=== PATIENT | male | born 1960 | race Two or more races ===

== ENCOUNTER 2017-01-26 19:32 | Emergency (ER) | payer OTHER, MEDICAID ==
--- NOTE | 2017-01-26 19:43 | CPEKG ---
Heart Rate: 99 RR Interval: 606 QRSD Interval: 136 QT Interval: 376 QTC Interval: 483 QRS [place]: -20 T Wave [place]: 32 EKG Severity - ABNORMAL ECG - EKG Impression: ATRIAL FLUTTER, A-RATE 234 EKG Impression: MULTIFORM VENTRICULAR PREMATURE COMPLEXES EKG Impression: RIGHT BUNDLE BRANCH BLOCK EKG Impression: PROBABLE INFERIOR INFARCT, OLD Electronically Signed By: Fredy Deras 27-Jan-2017 00:12:27
[2017-01-26 20:13] LABS: % IMMATURE GRANULYOCYTES 0.5 % (0.0-1.1); ABSOLUTE IMMATURE GRANULOCYTES 0.03 10^3/uL (0.00-0.10); ADD DIFF? NO; ADD MORPH? NO; ADD SCAN? NO; ATYPICAL LYMPHOCYTE FLAG 0 (0-99); FRAGMENT RBC FLAG 0 (0-99); HEMATOCRIT 44.9 % (40.0-51.0); HEMOGLOBIN 14.7 g/dL (13.7-17.5); LEFT SHIFT FLG 0 (0-99); LIPEMIA HEMOLYSIS FLAG 80 (0-99); MEAN CELL HEMOGLOBIN 29.2 pg (27.9-34.1); MEAN CELL HEMOGLOBIN CONCENTR. 32.7 g/dL (32.4-36.7); MEAN CELL VOLUME 89.3 fL (81.5-99.8); MEAN PLATELET VOLUME 10.6 fL (8.7-11.7); PLATELET CLUMPS FLAG 0 (0-99); PLATELET COUNT 208 10^3/uL (150-400); RED BLOOD CELL COUNT 5.03 10^6/uL (4.40-6.38)
[2017-01-26 20:47] LABS: ANION GAP 10 mEq/L (8-16); CARBON DIOXIDE 24 mEq/l (22-31); CHLORIDE 103 mEq/L (97-110); CREATININE 0.9 mg/dL (0.7-1.3); GLOMERULAR FILTRATION RATE > 60; GLUCOSE 169 mg/dL (70-100); POTASSIUM 4.2 mEq/L (3.5-5.2); SODIUM 137 mEq/L (134-144)
[2017-01-26 20:57] LABS: TROPONIN I < 0.012 ng/mL (0-0.034)
--- NOTE | 2017-01-26 21:38 | CPEKG ---
Heart Rate: 78 RR Interval: 769 P-R Interval: 188 QRSD Interval: 92 QT Interval: 392 QTC Interval: 447 P [place]: 53 QRS [place]: -88 T Wave [place]: 30 EKG Severity - ABNORMAL ECG - EKG Impression: SINUS RHYTHM EKG Impression: PROBABLE INFERIOR INFARCT, AGE INDETERMINATE Electronically Signed By: Fredy Deras 27-Jan-2017 00:11:34
--- NOTE | 2017-01-26 22:59 | EDPHY ---
H & P Time Seen by Provider: 01/26/17 20:17 HPI/ROS: Chief complaint. Chest pain HPI. 56-year-old male [facility]. His chest pain began at 1:30 a.m. yesterday afternoon. It apparently began at the onset of him being placed under arrest. He notes pressure left anterior chest pain radiation to left arm. Shortness of breath. He tells me had an angiogram at a [facility] but they could not place a stent as the hole was not big enough. So therefore they [facility]. At 6:30 a.m. this evening he again started to have chest discomfort. He apparently had an [place] 1 year ago. ROS Constitutional. no fever/chills, no weakness Eyes. no problems with vision ENT. no sore throat, no nasal drainage Cardiovascular. Chest pain Respiratory. Shortness of breath Abdominal. no abdominal pain, no nausea/vomiting, no diarrhea . no problems urinating MS. no calf pain/swelling, no neck/back pain, no joint pain Skin. no rash Lymph. no swollen glands Neuro. no headache, no dizziness, no difficulty walking or with speech Past Medical/Surgical History: Insulin-dependent diabetes and previous [place] Social History: Single, daily smoker, no alcohol Smoking Status: Current every day smoker Physical Exam: General Appearance: Alert well-developed male mild distress vital signs stable though initial blood pressure 151/114 Eyes: Pupils equal and round no pallor or injection. ENT, Mouth: Mucous membranes are moist. Respiratory: There are no retractions, lungs are clear to auscultation. Cardiovascular: Regular rate and rhythm. Gastrointestinal: Abdomen is soft and nontender, no masses, bowel sounds normal. Neurological: Awake and alert, sensory and motor exams grossly normal. Skin: Warm and dry, no rashes. Musculoskeletal: Neck is supple nontender. Extremities symmetrical, full range of motion. Psychiatric: Patient is oriented X 3, there is no agitation. Constitutional: Initial Vital Signs Temperature (C) 36.8 C 01/26/17 19:41 Heart Rate 98 01/26/17 19:41 Respiratory Rate 20 01/26/17 19:41 Blood Pressure 151/114 H 01/26/17 19:41 O2 Sat (%) 92 01/26/17 19:41 O2 Delivery Mode Room Air Allergies/Adverse Reactions: No Known Allergies Allergy (Unverified 01/26/17 19:40) Home Medications: Medication Instructions Recorded Insulin Lispro 01/26/17 Lantus 100 UNITS/ML (*) 01/26/17 [place] 5/325 (*) 01/26/17 Medical Decision Making - Diagnostics EKG Interpretation: Initial EKG had large amount artifact was difficult to read. No obvious ST elevation or depression Repeat EKG shows normal sinus rhythm normal interval and axis. Evidence of old inferior [place]. QRS is otherwise normal. There is no significant ST elevation or depression. No arrhythmia. The rate is 78 Imaging Results: Imaging Impressions Chest X-Ray 01/26/17 19:53 Impression: No evidence of acute cardiopulmonary abnormality. Chest x-ray interpreted by me is normal Procedures: IV normal saline, monitor ED Course/Re-evaluation: Old records are obtained from a [facility] which shows that the patient had a normal workup and then today the patient had a Lexiscan stress test. Showed normal left ventricle. Myocardium shows normal perfusion with no fixed or reversible defects. No left ventricular dilation with stress. No focal wall abnormalities. Ejection fraction 55% there was no evidence for ischemia Patient has negative serial troponins. Re-evaluation patient is stable. Patient and I discussed imaging lab results as well as EKG findings. We discussed treatment plan including criteria for return importance of follow-up and further evaluation. He expresses understanding agreement Differential Diagnosis: I considered acute coronary syndrome, pneumonia, pneumothorax. I think it unlikely the patient is having an acute coronary syndrome as he had normal workup yesterday with a normal nonischemic stress test and then normal workup today. - Data Points Laboratory Results: Laboratory Results 01/26/17 20:00 01/26/17 20:00 01/26/17 01/26/17 01/26/17 21:45 20:00 20:00 WBC RBC Hgb Hct MCV MCH MCHC RDW Plt Count MPV Neut % (Auto) Lymph % (Auto) Walker % (Auto) Eos % (Auto) Baso % (Auto) Nucleat RBC Rel Count Absolute Neuts (auto) Absolute Lymphs (auto) Absolute Monos (auto) Absolute Eos (auto) Absolute Basos (auto) Absolute Nucleated RBC Immature Gran % Immature Gran # D-Dimer Sodium 137 mEq/L mEq/L (134-144) Potassium 4.2 mEq/L mEq/L (3.5-5.2) Chloride 103 mEq/L mEq/L (97-110) Carbon Dioxide 24 mEq/l mEq/l (22-31) Anion Gap 10 mEq/L mEq/L (8-16) BUN 16 mg/dL mg/dL (7-23) Creatinine 0.9 mg/dL mg/dL (0.7-1.3) Estimated GFR > 60 Glucose 169 mg/dL H mg/dL (70-100) Calcium 9.0 mg/dL mg/dL (8.5-10.4) Troponin I 0.015 ng/mL ng/mL < 0.012 ng/mL ng/mL < 0.012 ng/mL ng/mL (0-0.034) (0-0.034) (0-0.034) NT-Pro-B Natriuret Pep 55 pg/mL pg/mL (0-125) 01/26/17 01/26/17 20:00 20:00 WBC 5.81 10^3/uL 10^3/uL (3.80-9.50) RBC 5.03 10^6/uL 10^6/uL (4.40-6.38) Hgb 14.7 g/dL g/dL (13.7-17.5) Hct 44.9 % % (40.0-51.0) MCV 89.3 fL fL (81.5-99.8) MCH 29.2 pg pg (27.9-34.1) MCHC 32.7 g/dL g/dL (32.4-36.7) RDW 14.0 % % (11.5-15.2) Plt Count 208 10^3/uL 10^3/uL (150-400) MPV 10.6 fL fL (8.7-11.7) Neut % (Auto) 70.9 % % (39.3-74.2) Lymph % (Auto) 17.4 % % (15.0-45.0) Walker % (Auto) 7.6 % % (4.5-13.0) Eos % (Auto) 3.3 % % (0.6-7.6) Baso % (Auto) 0.3 % % (0.3-1.7) Nucleat RBC Rel Count 0.0 % % (0.0-0.2) Absolute Neuts (auto) 4.12 10^3/uL 10^3/uL (1.70-6.50) Absolute Lymphs (auto) 1.01 10^3/uL 10^3/uL (1.00-3.00) Absolute Monos (auto) 0.44 10^3/uL 10^3/uL (0.30-0.80) Absolute Eos (auto) 0.19 10^3/uL 10^3/uL (0.03-0.40) Absolute Basos (auto) 0.02 10^3/uL 10^3/uL (0.02-0.10) Absolute Nucleated RBC 0.00 10^3/uL 10^3/uL (0-0.01) Immature Gran % 0.5 % % (0.0-1.1) Immature Gran # 0.03 10^3/uL 10^3/uL (0.00-0.10) D-Dimer < 0.27 ug/mLFEU ug/mLFEU (0.00-0.50) Sodium Potassium Chloride Carbon Dioxide Anion Gap BUN Creatinine Estimated GFR Glucose Calcium Troponin I NT-Pro-B Natriuret Pep Departure - Departure Disposition: Home, Routine, Self-Care Clinical Impression: Chest pain Qualifiers: Chest pain type: unspecified Qualified Code(s): R07.9 - Chest pain, unspecified Condition: Good Instructions: Chest Pain (ED) Additional Instructions: Take 81 mg aspirin daily. Return for worsening chest discomfort. Follow up with Cardiology. Your workup today and yesterday and a [facility] was normal Referrals: JESSICA SOTO [Other] - As per Instructions Reza Grant MD [Medical Doctor] - 2-3 days, call for appt.
[2017-01-26 23:08] VITALS: BP 115/87; PULSE 88; RESP 15; TEMP 98.1; O2SAT 96
== END 2017-01-26 23:28 | disposition home or self-care (01) ==
DX: R07.9 Chest pain, unspecified (principal); E11.9 Type 2 diabetes mellitus without complications; F17.200 Nicotine dependence, unspecified, uncomplicated; I25.2 Old myocardial infarction; Z79.4 Long term (current) use of insulin